=== PATIENT | female | born 1970 | race Caucasian/White ===

== ENCOUNTER → 2016-04-02 | Outpatient (CLI) | payer BC ==
[~2016-04-02] MED LIST: BUPRTAB51 PO; CALCTAB5 PO; CLR10 PO; LEXAPRO PO; MTR600X PO; OXYC5TAB PO; PANT20TA PO
--- NOTE | 2016-04-02 14:08 | MAMMOGRAPHY REPORT ---
BILATERAL DIGITAL SCREENING MAMMOGRAM TOMOSYNTHESIS WITH CAD: 04/02/2016 CLINICAL HISTORY: Routine screening. Patient has no complaints. TECHNIQUE: Breast tomosynthesis in addition to standard 2D mammography was performed. Current study was also evaluated with a Computer Aided Detection (CAD) system. COMPARISON: Comparison is made to exams dated: 03/30/2015 mammogram, 03/27/2014 mammogram, 03/24/2013 mammogram, 03/18/2012 mammogram, 02/27/2011 mammogram, and 02/26/2010 mammogram - [facility]. BREAST COMPOSITION: The tissue of both breasts is extremely dense, which lowers the sensitivity of mammography. FINDINGS: No suspicious masses, calcifications, or areas of architectural distortion are noted in e ither breast. There has been no significant interval change compared to prior exams. Scattered bilat eral benign-appearing calcifications are not significantly changed. Small nodular asymmetry in the left superior posterior breast is stable compared to prior exams including the 2013 exam. IMPRESSION: ACR BI-RADS CATEGORY 2: BENIGN There is no mammographic evidence of malignancy. A 1 year screening mammogram is recommended. The p atient will receive written notification of the results. Approximately 10% of breast cancers are not detected with mammography. A negative mammographic repor t should not delay biopsy if a clinically suggestive mass is present. Neyda Franco M.D. /:04/02/2016 12:44:40 [employer] Specialist: Laine MUHAMMAD)(Ellen), [facility] letter sent: Normal 1/2 BI-RADS Code: ACR BI-RADS Category 2: Benign
== END | disposition home or self-care (01) ==
LOC: C.MAMM 07:55
PROVIDERS: ATTEND Obstetrics & Gynecology
DX: Z12.31 Encounter for screening mammogram for malignant neoplasm of breast (principal)

== ENCOUNTER → 2016-04-02 | Outpatient (CLI) | payer BC ==
[2016-04-02 10:00] LABS: ALT/SGPT 27 U/L (12-78); BLOOD UREA NITROGEN 13 mg/dl (7-18); BUN/CREATININE RATIO 15.8 (10-20); CALCIUM 8.8 mg/dl (8.5-10.1); CARBON DIOXIDE 26 mmol/L (21-32); CHLORIDE 108 mmol/L (98-107); CHOLESTEROL 156 mg/dl (0-200); CREATININE 0.83 mg/dl (0.60-1.20); GLUCOSE 99 mg/dl (70-99); POTASSIUM 4.4 mmol/L (3.5-5.1); SODIUM 142 mmol/L (136-145)
[2016-04-02 10:03] LABS: ALB/GLOB RATIO 1.2 (0.9-2); ALKALINE PHOSPHATASE 100 U/L (45-117); AST/SGOT 31 U/L (15-37); CHOLESTEROL/HDL RATIO 2.4; HDL CHOLESTEROL 65 mg/dl; LDL CHOLESTEROL CALCULATED 82 mg/dl; TRIGLYCERIDES 45 mg/dl (0-150); VERY LOW DENSITY LIPOPROT CALC 9 mg/dl
== END | disposition home or self-care (01) ==
LOC: C.LAB1850 07:41
PROVIDERS: ATTEND Family Medicine
DX: Z00.00 Encounter for general adult medical examination without abnormal findings (principal); L70.8 Other acne; F41.1 Generalized anxiety disorder; J30.1 Allergic rhinitis due to pollen; R87.622 Low grade squamous intraepithelial lesion on cytologic smear of vagina (LGSIL); E66.3 Overweight

== ENCOUNTER → 2016-04-18 | Outpatient (CLI) | payer BC | END | disposition home or self-care (01) | LOC: C.LABSPEC 17:26 | PROVIDERS: ATTEND Obstetrics & Gynecology | DX: N89.8 Other specified noninflammatory disorders of vagina (principal) ==

== ENCOUNTER → 2016-12-12 | Outpatient (CLI) | payer BC ==
[~2016-12-12] MED LIST changes: +GADAVIST IV PRN
--- NOTE | 2016-12-12 14:32 | DIAGNOSTIC IMAGING REPORT ---
RIGHT SHOULDER MRI with INTRA-ARTICULAR CONTRAST HISTORY: Right shoulder pain. R SHOULDER BICEPS TENDONITIS TECHNIQUE: Multiplanar multisequence MRI of the right shoulder was performed following the intra-articular injection of contrast. COMPARISON STUDY: None. FINDINGS: AC joint: Intact Rotator cuff: Intact Labrum: Abnormal signal within the superior labrum consistent with a SLAP tear. Biceps tendon: Intact Bones: Intact Cartilage: Mild cartilage thinning within the glenoid. IMPRESSION: 1. SLAP tear. 2. The long head of the biceps tendon appears intact. Electronically signed by: Edwin Bell M.D. 12/12/2016 2:31 PM Dictated Date/Time: 12/12/2016 2:27 PM
--- NOTE | 2016-12-12 14:42 | DIAGNOSTIC IMAGING REPORT ---
R INJECTION SHOULDER PRE MRI FLUOROSCOPY TIME: 20 seconds CLINICAL HISTORY: 46 years-old Female with R SHOULDER BICEPS TENDONITIS. Acute right shoulder pain PROCEDURE: After obtaining written informed consent, the patient was placed supine on the fluoroscopy table. A suitable site for needle insertion was marked using fluoroscopic guidance. The right shoulder was prepped and draped in the usual sterile fashion. 1% lidocaine was used for skin, subcutaneous and deep soft tissue anesthesia. Under intermittent fluoroscopic guidance, a 22 gauge 2.5 inch spinal needle was inserted into the right glenohumeral joint. A total of 14 cc of one-to-one mixture of dilute Magnevist (0.1 cc in 10 cc saline) and Optiray 300 were injected. The needle was then removed. There were no apparent complications. The patient was transported to MR for further imaging. IMPRESSION: Fluoroscopic-guided right shoulder arthrogram without immediate complication. Total injected volume was 14 cc. MR portion of the examination will be dictated separately. The above report was generated using voice recognition software. It may contain grammatical, syntax or spelling errors. Electronically signed by: Kavin Ochoa M.D. 12/12/2016 2:41 PM Dictated Date/Time: 12/12/2016 2:40 PM
== END | disposition home or self-care (01) ==
LOC: C.MRIBC 12:22
PROVIDERS: ATTEND Physician Assistant
DX: M75.21 Bicipital tendinitis, right shoulder (principal); S43.431A Superior glenoid labrum lesion of right shoulder, initial encounter; X58.XXXA Exposure to other specified factors, initial encounter

== ENCOUNTER → 2016-12-30 | Outpatient (CLI) | payer BC ==
[~2016-12-30] MED LIST changes: -CALCTAB5 PO; +ESCI10TA17 PO; -GADAVIST IV PRN; -LEXAPRO PO; -MTR600X PO; -OXYC5TAB PO
[2016-12-30 10:06] LABS: HEMATOCRIT 38.6 % (37-47); MEAN CELL VOLUME 85.8 fL (80-100); MEAN CORPUSCULAR HEMOGLOBIN 30.4 pg (25-34); MEAN CORPUSCULAR HGB CONC 35.5 g/dl (32-36); MEAN PLATELET VOLUME 9.5 fL (7.4-10.4); PLATELET COUNT 261 K/uL (130-400); WHITE BLOOD COUNT 5.69 K/uL (4.8-10.8)
--- NOTE | 2016-12-30 12:22 | HISTORY & PHYSICAL EXAMINATION ---
DATE OF ADMISSION: 12/30/2016 CHIEF COMPLAINT: Right shoulder pain. HISTORY OF PRESENT ILLNESS: Lexii is a 46-year-old female patient of Dr. Argueta from [facility] with right shoulder pain x10 months. She denies any specific injury. She has failed conservative treatment such as physical therapy and injections. She states the pain is worse with activity and makes it difficult for her to perform certain activities of daily living and elective activity. PAST MEDICAL HISTORY: 1. Anxiety. 2. GERD. 3. History of hiatal hernia. 4. Seasonal allergies. PAST SURGICAL HISTORY: 1. . 2. Ovarian cyst removal. 3. Cyst removal of the wrist. 4. Tubal ligation. 5. Hysterectomy. 6. [place] tooth extraction. 7. Cholecystectomy. SOCIAL HISTORY: The patient lives at home in a safe environment, drinks 0 to 1 alcoholic beverage per week. Denies any tobacco or illegal drug use. FAMILY HISTORY: Noncontributory. MEDICATIONS: 1. Bupropion 100 mg p.o. q. 12 hours. 2. Claritin 10 mg tab daily. 3. Lexapro 10 mg tab daily. 4. Pantoprazole 40 mg tab daily. ALLERGIES: ALBUTEROL CAUSING TACHYCARDIA, ultimately resulting in a stress test at [facility] in 2002 to rule out any other pathology, which was all negative and ruled as being caused by the adverse reactions and tachycardia from her albuterol. REVIEW OF SYSTEMS: The patient denies headache, chest pain, shortness of breath, fevers, chills or night sweats. PHYSICAL EXAMINATION: GENERAL: The patient is alert and oriented x3 female. She is in no acute distress, pleasant, appears her currently stated age. CARDIAC: Regular rate and rhythm. S1 greater than S2. No murmurs, rubs or gallops appreciated. RESPIRATORY: Lungs are clear to auscultation bilaterally all lung ivey. No rales, rhonchi or wheezing. GASTROINTESTINAL: Abdomen is soft, nontender, nondistended. Normal active bowel sounds all 4 quadrants. SKIN: The patient's right shoulder does not reveal any erythema, ecchymosis, abrasions, lacerations or skin breakdown. MUSCULOSKELETAL: The right shoulder reveals forward elevation range of motion with 170 degrees with pain at endpoints. External rotation to 45 degrees, internal rotation to L4. She has provocative testing with positive Neer and [place]'s testing. She has pain with a Jobes test, but no significant weakness. She has a negative Her, negative cross arm, negative apprehension and relocation test. She has tenderness on palpating along the head of the biceps as well. AC joint is not overly tender. Elbow is atraumatic. MRI reveals a SLAP tear of the right shoulder. IMPRESSION: Right shoulder superior, labrum, anterior and posterior tear. PLAN: Lexii will undergo a right shoulder arthroscopy, labral and rotator cuff debridement versus repair, biceps tenotomy versus tenodesis, subacromial decompression, exam under anesthesia scheduled for the [facility] on 01/09/2017. She will obtain a CBC for preoperative testing. Does not require any preoperative medical clearance. She was given Percocet for postoperative pain. Physical therapy will begin day [address] Salvador 2 weeks after surgery for suture removal. Any other questions or concerns, notify [facility] at [phone].
== END | disposition home or self-care (01) ==
LOC: C.LAB1850 08:52
PROVIDERS: ATTEND Physician Assistant
DX: S49.91XD Unspecified injury of right shoulder and upper arm, subsequent encounter (principal); Z01.818 Encounter for other preprocedural examination; X58.XXXD Exposure to other specified factors, subsequent encounter

== ENCOUNTER → 2017-04-16 | Outpatient (CLI) | payer OTHER ==
[~2017-04-16] MED LIST changes: -PANT20TA PO; +PANT20TA2 PO
== END | disposition home or self-care (01) ==
LOC: C.LABSPEC 10:44
PROVIDERS: ATTEND Obstetrics & Gynecology
DX: N89.8 Other specified noninflammatory disorders of vagina (principal)

== ENCOUNTER → 2017-04-16 | Outpatient (CLI) | payer OTHER | END | disposition home or self-care (01) | LOC: C.PAPS 11:55 | PROVIDERS: ATTEND Obstetrics & Gynecology | DX: Z01.419 Encounter for gynecological examination (general) (routine) without abnormal findings (principal) ==